=== PATIENT | female | born 1960 | race Caucasian/White ===

== ENCOUNTER 2016-08-14 12:43 | Emergency (ER) | payer OTHER ==
[2016-08-14] MEDS ORDERED: AMOXICILLIN TR/POT CLAVULANATE 500-125 MG TAB PO ONE (14:34)
[2016-08-14] MEDS ORDERED: OXYCODONE-ACETAMINOPHEN 5-325 MG TABLET PO ONE (14:34)
[2016-08-14] MEDS ORDERED: PREDNISONE 20 MG TABLET PO ONE (14:34)
--- NOTE | 2016-08-14 14:49 | ER Document Report ---
ED Animal Bite - General Chief Complaint: Cat Bite Stated Complaint: CAT ATTACK Time Seen by Provider: 08/14/16 13:52 Mode of Arrival: Ambulatory Information source: Patient Notes: Patient is a 56-year-old female who presents to the ER today for swollen, red, painful left hand after her cat bit her 3 days ago. Patient states she has not been keeping it clean, states that the pain and swelling him to gotten worse and worse and she has been using heat packs which have not been helping. She admits to chills but no fever. She states that her cat was up-to-date on all of her shots including rabies. She is not up-to-date on her tetanus. TRAVEL OUTSIDE OF THE [place] IN LAST 30 DAYS: No - Related Data Allergies/Adverse Reactions: No Known Allergies Allergy (Unverified 08/14/16 13:03) Past Medical History - General Information source: Patient - Social History Smoking Status: Unknown if Ever Smoked Family History: Reviewed & Not Pertinent Patient has suicidal ideation: No Patient has homicidal ideation: No Renal/ Medical History: Denies: Hx Peritoneal Dialysis Review of Systems - Review of Systems Constitutional: No symptoms reported EENT: No symptoms reported Cardiovascular: No symptoms reported Respiratory: No symptoms reported Gastrointestinal: No symptoms reported Genitourinary: No symptoms reported Female Genitourinary: No symptoms reported Musculoskeletal: No symptoms reported Skin: No symptoms reported Hematologic/Lymphatic: No symptoms reported Neurological/Psychological: No symptoms reported Physical Exam - Vital signs Vitals: Temp Pulse Resp BP Pulse Ox 98.3 F 121 H 24 H 146/93 H 97 08/14/16 13:03 08/14/16 13:03 08/14/16 13:03 08/14/16 13:03 08/14/16 13:03 - Notes Notes: PHYSICAL EXAMINATION: GENERAL: Obviously in pain, in no acute distress. HEAD: Atraumatic, normocephalic. EYES: Pupils equal round and reactive to light, extraocular movements intact, sclera anicteric, conjunctiva are normal. NECK: Normal range of motion, supple without lymphadenopathy LUNGS: CTAB and equal. No wheezes rales or rhonchi. HEART: Regular rate and rhythm without murmurs EXTREMITIES: Normal range of motion, no pitting edema. No cyanosis. NEUROLOGICAL: Cranial nerves grossly intact. Normal sensory/motor exams. PSYCH: Normal mood, normal affect. SKIN: Warm, Dry, normal turgor, edematous, erythematous left hand with cat bite markings on dorsal left hand, tender to palpation, warm to touch, no drainage or bleeding Course - Re-evaluation Re-evalutation: 08/14/16 16:41 Patient heart rate was 121 bpm on arrival, after pain medication was given, patient wanted to leave 15 minutes later, heart rate 132 bpm. I advised patient stay so that I can do further evaluation and get her heart rate down with some IV fluids, etc., however patient has a ride and "feels much better" and would like to go home. I have advised her that she will have to sign out AGAINST MEDICAL ADVICE and she agrees at this time. She states that she does have palpitations sometimes. - Vital Signs Vital signs: Temp Pulse Resp BP Pulse Ox 98.2 F 128 H 16 132/84 H 96 08/14/16 15:43 08/14/16 15:43 08/14/16 15:43 08/14/16 15:43 08/14/16 15:43 Discharge - Discharge Clinical Impression: Tachycardia Cat bite Qualifiers: Encounter type: initial encounter Qualified Code(s): W55.01XA - Bitten by cat, initial encounter Disposition: AGAINST MEDICAL ADVICE Additional Instructions: Return immediately for any new or worsening symptoms. Follow up with primary care provider, call tomorrow to make followup appointment. Prescriptions: Amox Tr/Potassium Clavulanate [Augmentin 875-125 Tablet] 1 tab PO BID 10 Days Oxycodone HCl/Acetaminophen [Percocet 5-325 mg Tablet] 1 tab PO Q4 #15 tab Prednisone [Deltasone 20 mg Tablet] 3 tab PO DAILY 5 Days
[2016-08-14 15:44] VITALS: BP 132/84
[2016-08-14] MEDS ORDERED: DIPH/PERTUSS(ACELL)/TETANUS VAC/PF 0.5 ML SYR (>=10YO) IM ONE (16:39)
== END 2016-08-14 17:00 | disposition left against medical advice (07) ==
LOC: ER 12:43
DX: S61.452A Open bite of left hand, initial encounter (principal); W55.01XA Bitten by cat, initial encounter; Y93.84 Activity, sleeping; R00.0 Tachycardia, unspecified; R00.2 Palpitations; Z53.20 Procedure and treatment not carried out because of patient's decision for unspecified reasons
CPT/HCPCS: 99283; J7512

== ENCOUNTER 2016-11-21 17:17 | Emergency (ER) | payer SELFPAY ==
[2016-11-21] MEDS ORDERED: NORMAL SALINE 1000 ML 1,000 ML IV PRN (18:11)
[2016-11-21] MEDS ORDERED: ONDANSETRON 4 MG TAB.RAPDIS PO ONE (18:13)
[2016-11-21] MEDS ORDERED: THIAMINE HCL 100 MG TABLET PO ONE (18:13)
--- NOTE | 2016-11-21 18:14 | ER Document Report ---
ED Medical Screen (RME) - General Chief Complaint: Blurred Vision Stated Complaint: BLURRED VISION,WEAKNESS Time Seen by Provider: 11/21/16 18:11 Mode of Arrival: Ambulatory Information source: Patient Notes: This is a 56-year-old female with a history of daily alcohol use who presents to the emergency room with diplopia for 4 days. Patient does note decreased p.o. intake, intermittent nausea and vomiting. She does report increased weakness. She denies headache, focal weakness, confusion, fever, chills. TRAVEL OUTSIDE OF THE [place] IN LAST 30 DAYS: No - Related Data Allergies/Adverse Reactions: No Known Allergies Allergy (Verified 11/21/16 17:29) Past Medical History - Social History Chew tobacco use (# tins/day): No Frequency of alcohol use: Heavy Drug Abuse: None Pulmonary Medical History: Reports: Hx Asthma Renal/ Medical History: Denies: Hx Peritoneal Dialysis Past Surgical History: Reports: Hx Section - Immunizations Hx Diphtheria, Pertussis, Tetanus Vaccination: No Physical Exam - Vital signs Vitals: Temp Pulse Resp BP Pulse Ox 97.6 F 115 H 16 154/93 H 99 11/21/16 17:28 11/21/16 17:28 11/21/16 17:28 11/21/16 17:28 11/21/16 17:28 Course - Vital Signs Vital signs: Temp Pulse Resp BP Pulse Ox 97.6 F 115 H 16 154/93 H 99 11/21/16 17:28 11/21/16 17:28 11/21/16 17:28 11/21/16 17:28 11/21/16 17:28
[2016-11-21] MEDS ORDERED: THIAMINE HCL 100 MG in NORMAL SALINE 50 ML IV SCH (18:15)
[2016-11-21 18:54] LABS: ABSOLUTE LYMPHOCYTES (AUTO) 1.2 10^3/uL (0.5-4.7); ABSOLUTE MONOCYTES (AUTO) 0.5 10^3/uL (0.1-1.4); ABSOLUTE NEUT (AUTO) 3.4 10^3/uL (1.7-8.2); BASOPHILS % (AUTO) 0.9 % (0-2); EOSINOPHILS % (AUTO) 0.4 % (0-6); HEMATOCRIT 35.5 % (36.0-47.0); HEMOGLOBIN 12.7 g/dL (12.0-15.5); HGB HCT DIFFERENCE 2.6; LYMPHOCYTES % (AUTO) 22.7 % (13-45); MEAN CORPUSCULAR HGB CONC 35.8 g/dL (32.0-36.0); MEAN CORPUSCULAR VOLUME 101 fl (80-97); MONOCYTES % (AUTO) 9.5 % (3-13); RED BLOOD COUNT 3.52 10^6/uL (3.72-5.28); RED CELL DISTRIBUTION WIDTH 14.5 % (11.5-14.0); SEGMENTED NEUTROPHILS % (AUTO) 66.5 % (42-78); WHITE BLOOD COUNT 5.1 10^3/uL (4.0-10.5)
--- NOTE | 2016-11-21 19:15 | ER Document Report ---
ED General - General Chief Complaint: Blurred Vision Stated Complaint: BLURRED VISION,WEAKNESS Time Seen by Provider: 11/21/16 18:11 Mode of Arrival: Ambulatory Information source: Patient Notes: 56 yo non smoking female with non tx htn, non dm, c/o double vision intermittent (amparolion avelino) sudden onset 4 days ago (used to wear contacts) , starting to become more constant in past few days. Took nap that day, and was gone but is now recurring. Also states that she has numbness to stomach skin, sometimes in both legs that started before the double vison. TRAVEL OUTSIDE OF THE [place] IN LAST 30 DAYS: No - Related Data Allergies/Adverse Reactions: No Known Allergies Allergy (Verified 11/21/16 17:29) Past Medical History - General Information source: Patient - Social History Smoking Status: Never Smoker Chew tobacco use (# tins/day): No Frequency of alcohol use: Heavy - wine sip all day and night, withdrawal if she does not, she is expecting to have withdrawal /shakes heart palpitations. Last intake wine was 5 pm. Drug Abuse: None Occupation: [employer] Lives with: Alone Family History: Reviewed & Not Pertinent - Past Medical History Cardiac Medical History: Reports: Hx Hypertension Pulmonary Medical History: Reports: Hx Asthma Neurological Medical History: Reports: Hx Migraine. Denies: Hx Cerebrovascular Accident, Hx Seizures Renal/ Medical History: Denies: Hx Peritoneal Dialysis GI Medical History: Denies: Hx Liver Failure Past Surgical History: Reports: Hx Section - x 3 - Immunizations Hx Diphtheria, Pertussis, Tetanus Vaccination: No Review of Systems - Review of Systems Constitutional: No symptoms reported EENT: See HPI Cardiovascular: No symptoms reported Respiratory: No symptoms reported Gastrointestinal: No symptoms reported Genitourinary: No symptoms reported Female Genitourinary: No symptoms reported Musculoskeletal: No symptoms reported Skin: No symptoms reported Hematologic/Lymphatic: No symptoms reported Neurological/Psychological: See HPI Physical Exam - Vital signs Vitals: Temp Pulse Resp BP Pulse Ox 97.6 F 115 H 16 154/93 H 99 11/21/16 17:28 11/21/16 17:28 11/21/16 17:28 11/21/16 17:28 11/21/16 17:28 Interpretation: Hypertensive, Tachycardic - General General appearance: Appears well, Alert In distress: None - HEENT Head: Normocephalic, Atraumatic Eyes: Normal Conjunctiva: Normal Extraocular movements intact: No - nystagmus, limited left lateral and superior Pupils: PERRL Nerve palsy: Yes - limited with nystagmus as above Tympanic membrane: Normal Pharynx: Normal Neck: Supple. No: Lymphadenopathy - Respiratory Respiratory status: No respiratory distress Chest status: Nontender Breath sounds: Normal Chest palpation: Normal - Cardiovascular Rhythm: Regular Heart sounds: Normal auscultation Murmur: No - Abdominal Inspection: Normal Distension: No distension Bowel sounds: Normal Tenderness: Nontender. No: Tender Organomegaly: No organomegaly - Back Back: Normal, Nontender - Extremities General upper extremity: Normal inspection, Nontender, Normal color, Normal ROM , Normal temperature General lower extremity: Normal inspection, Nontender, Normal color, Normal ROM , Normal temperature, Normal weight bearing. No: Prosper's sign - Neurological Neuro grossly intact: Yes Cognition: Normal Orientation: AAOx4 Aarti Coma Scale Eye Opening: Spontaneous [place] Coma Scale Verbal: Oriented [place] Coma Scale Motor: Obeys Commands Aarti Coma Scale Total: 15 Speech: Normal Cranial nerves: Other - see above for EOM's Motor strength normal: LUE, RUE, LLE, RLE Sensory: Normal - Psychological Associated symptoms: Normal affect, Normal mood - Skin Skin Temperature: Warm Skin Moisture: Dry Skin Color: Normal Skin irregularity: negative: Rash Course - Re-evaluation Re-evalutation: 11/21/16 20:[address] streeter, get MRI combo, probably wernicke encephalopathy, give vit b12 daily, f/u with him, patch [address] is negative. 11/21/16 20:40 pt does not want the MRI I explained the other differentials this could be and still is very concerned about the cost and she thinks it is due to the alcohol because when she sleeps she wakes up without it. I will have her sign the refusal of treatment/AMA form and refer her to dr. rangel with the other recommended treatmenst. She is willing to accept the risks of not have definitive diagnosis. 11/21/16 20:42 11/21/16 20:43 etoh 50, liver enzymes elevated. - Vital Signs Vital signs: Temp Pulse Resp BP Pulse Ox 98.3 F 102 H 18 162/91 H 98 11/21/16 22:02 11/21/16 22:02 11/21/16 22:02 11/21/16 22:02 11/21/16 22:02 - Laboratory Result Diagrams: 11/21/16 18:40 11/21/16 19:45 Laboratory results interpreted by me: 11/21/16 11/21/16 11/21/16 18:40 18:40 19:45 RBC 3.52 L Hct 35.5 L MCV 101 H MCH 36.0 H RDW 14.5 H Sodium 136.5 L Chloride 97 L Carbon Dioxide 18 L Anion Gap 22 H Total Bilirubin 2.3 H Direct Bilirubin 1.7 H AST 335 H ALT 94 H Alkaline Phosphatase 238 H Urine Ketones 20 H Urine Blood SMALL H Urine Urobilinogen 4.0 H Ur Leukocyte Esterase MODERATE H Discharge - Discharge Clinical Impression: Alcoholism, intermittent diplopia, Liver enzyme elevation Condition: Good Disposition: HOME, SELF-CARE Instructions: Chronic Alcoholism ([facility]), Gastroenterology, Liver Function Abnormality ([facility]) Additional Instructions: seek detox to get off alcohol no tylenol because your liver enzymes are elevated see the neurologist dr. streeter info given to you to er if worse patch 1 eye when you see double over the counter vitamin B12 daily Please complete the patient satisfaction survey if you get one, and return it.. If you do not receive a survey, then you can go to the [facility] website, [email or web address] and place your comments about your very good care. Thank you very much. It was a pleasure being your medical provider today. Forms: Return to Work Referrals: JOSELINE RANGEL MD [ACTIVE STAFF] - Follow up as needed BORIS MEMBRENO MD [ACTIVE STAFF] - Follow up as needed
[2016-11-21 19:18] LABS: APPEARANCE,URINE SLIGHTLY-CLOUDY; BILIRUBIN,URINE NEGATIVE (NEGATIVE); GLUCOSE, URINE NEGATIVE (NEGATIVE); KETONES,URINE 20 mg/dL (NEGATIVE); LEUKOCYTE ESTERASE,URINE MODERATE (NEGATIVE); NITRITE,URINE NEGATIVE (NEGATIVE); PROTEIN,URINE NEGATIVE (NEGATIVE); URINE SPECIFIC GRAVITY 1.012
--- NOTE | 2016-11-21 19:44 | RADIOLOGY REPORT (SQ) ---
EXAM DESCRIPTION: CT HEAD WITHOUT COMPLETED DATE/TIME: 11/21/2016 7:01 pm REASON FOR STUDY: diploplia COMPARISON: None. TECHNIQUE: Axial images acquired through the brain without intravenous contrast. Images reviewed wi th bone, brain and subdural windows. Images stored on PACS. All CT scanners at this facility use dose modulation, iterative reconstruction, and/or weight based d osing when appropriate to reduce radiation dose to as low as reasonably achievable (ALARA). [facility]: Dose Right [facility]: CareDose [facility]: Dose Right [facility]: Teradose 4D [facility]: [place] RADIATION DOSE: Up-to-date CT equipment and radiation dose reduction techniques were employed. CTDIv ol: 64.6 mGy. DLP: 1163 mGy-cm. mGy. LIMITATIONS: None. FINDINGS: VENTRICLES: Normal size and contour. CEREBRUM: No masses. No hemorrhage. No midline shift. No evidence for acute infarction. Normal gra y/white matter differentiation. No areas of low density in the white matter. CEREBELLUM: No masses. No hemorrhage. No alteration of density. No evidence for acute infarction. EXTRAAXIAL SPACES: No fluid collections. No masses. There is some prominence of the sulci over the convexities. ORBITS AND GLOBE: No intra- or extraconal masses. Normal contour of globe without masses. CALVARIUM: No fracture. PARANASAL SINUSES: Mucosal thickening is identified in the maxillary antra. SOFT TISSUES: No mass or hematoma. OTHER: No other significant finding. IMPRESSION: No significant intracranial abnormalities were identified. Findings as noted above EVIDENCE OF ACUTE STROKE: NO. COMMENT: Quality ID # [id number]: Final reports with documentation of one or more dose reduction techniques (e.g., Automated exposure control, adjustment of the mA and/or kV according to patient size, use of iterative reconstruction technique) TECHNICAL DOCUMENTATION: JOB ID: [id number] [employer]- All Rights Reserved
[2016-11-21] MEDS ORDERED: LORAZEPAM 1 MG TABLET PO ONE (20:15)
[2016-11-21 20:22] LABS: ALANINE AMINOTRANSFERASE 94 U/L (9-52); ALBUMIN 4.3 g/dL (3.5-5.0); ALKALINE PHOSPHATASE 238 U/L (38-126); ASPARTATE AMINO TRANSFERASE 335 U/L (14-36); BILIRUBIN,DIRECT 1.7 mg/dL (0.0-0.4); BILIRUBIN,TOTAL 2.3 mg/dL (0.2-1.3); BLOOD UREA NITROGEN 10 mg/dL (7-20); CALCIUM 9.8 mg/dL (8.4-10.2); CREATININE RESULT 0.53 mg/dL (0.52-1.25); GLUCOSE 107 mg/dL (75-110); MAGNESIUM 1.7 mg/dL (1.6-2.3); TOTAL PROTEIN 7.4 g/dL (6.3-8.2)
[2016-11-21 20:29] LABS: CARBON DIOXIDE 18 mmol/L (22-30); CHLORIDE 97 mmol/L (98-107); SODIUM 136.5 mmol/L (137-145)
[2016-11-21 20:40] LABS: ANION GAP 22 (5-19)
[2016-11-21] MEDS ORDERED: THIAMINE HCL 100 MG in NORMAL SALINE 50 ML IV ONE (21:00)
[2016-11-21 22:05] VITALS: BP 162/91
== END 2016-11-21 22:24 | disposition home or self-care (01) ==
LOC: ER 17:17
DX: H53.8 Other visual disturbances (principal); F10.20 Alcohol dependence, uncomplicated; H53.2 Diplopia; R74.8 Abnormal levels of other serum enzymes; I10 Essential (primary) hypertension
CPT/HCPCS: 99284; 96365; 36415; 80307; 83735; 85025; 80053; 81001; 70450; S0119; J3411; J7030

== ENCOUNTER 2019-11-06 11:59 | Emergency (ER) | payer SELFPAY ==
[2019-11-06 12:44] LABS: ABSOLUTE BASOPHILS # (AUTO) 0.1 10^3/uL (0.0-0.2); ABSOLUTE EOSINOPHILS # (AUTO) 0.2 10^3/uL (0.0-0.6); ABSOLUTE LYMPHOCYTES (AUTO) 2.7 10^3/uL (0.5-4.7); ABSOLUTE MONOCYTES (AUTO) 0.2 10^3/uL (0.1-1.4); ABSOLUTE NEUT (AUTO) 3.7 10^3/uL (1.7-8.2); BASOPHILS % (AUTO) 0.9 % (0-2); HEMATOCRIT 35.9 % (36.0-47.0); LYMPHOCYTES % (AUTO) 39.2 % (13-45); MEAN CORPUSCULAR HEMOGLOBIN 30.6 pg (27.0-33.4); MEAN CORPUSCULAR HGB CONC 36.3 g/dL (32.0-36.0); MEAN CORPUSCULAR VOLUME 84 fl (80-97); MONOCYTES % (AUTO) 2.4 % (3-13); PLATELET COUNT 128 10^3/uL (150-450); RED BLOOD COUNT 4.26 10^6/uL (3.72-5.28); RED CELL DISTRIBUTION WIDTH 14.4 % (11.5-14.0); SEGMENTED NEUTROPHILS % (AUTO) 54.5 % (42-78); TOTAL CELLS COUNTED % (AUTO) 100 %; WHITE BLOOD COUNT 6.9 10^3/uL (4.0-10.5)
[2019-11-06 12:54] LABS: ALCOHOL 266 mg/dL (NONE DETECTED); ALKALINE PHOSPHATASE 119 U/L (38-126); ANION GAP 18 (5-19); ASPARTATE AMINO TRANSFERASE 60 U/L (14-36); BILIRUBIN,DIRECT 0.5 mg/dL (0.0-0.4); BILIRUBIN,TOTAL 1.3 mg/dL (0.2-1.3); BLOOD UREA NITROGEN 10 mg/dL (7-20); CALCIUM 8.4 mg/dL (8.4-10.2); CARBON DIOXIDE 20 mmol/L (22-30); CHLORIDE 104 mmol/L (98-107); GLUCOSE 79 mg/dL (75-110); POTASSIUM 4.8 mmol/L (3.6-5.0); TOTAL PROTEIN 7.1 g/dL (6.3-8.2)
--- NOTE | 2019-11-06 13:08 | ER Document Report ---
ED General - General Chief Complaint: ETOH Abuse Stated Complaint: ALCOHOL WITHDRAWAL Time Seen by Provider: 11/06/19 13:07 TRAVEL OUTSIDE OF THE [place] IN LAST 30 DAYS: No - HPI Notes: 59-year-old female presents with alcohol intoxication. Patient states that she was sober since July 22, 2018. In the past week she has started drinking. She states she "just felt like it", she denies any sort of life stressors or reasons to begin drinking and. She states she has been drinking heavily for the past week or so. She states that she is "not functioning" and "would like to get my life back", referencing Librium and to discontinue alcohol use. She states that she has been lying to her coworkers, she states that she told them that she fell, she now denies this. She does not remember any sort of events that happened today to lead to EMS being called. Per nursing report, EMS was called for a welfare check from a neighbor. She denies any sorts of pain. She states that she has a possible history of cirrhosis, has not really sought medical care for several years. She has not been eating much secondary to alcohol use. - Related Data Allergies/Adverse Reactions: No Known Allergies Allergy (Verified 11/06/19 12:31) Past Medical History - General Information source: Patient - Social History Smoking Status: Never Smoker Frequency of alcohol use: Heavy Family History: Reviewed & Not Pertinent - Past Medical History Cardiac Medical History: Reports: Hx Hypertension Pulmonary Medical History: Reports: Hx Asthma Neurological Medical History: Reports: Hx Migraine. Denies: Hx Cerebrovascular Accident, Hx Seizures Renal/ Medical History: Denies: Hx Peritoneal Dialysis GI Medical History: Denies: Hx Liver Failure Past Surgical History: Reports: Hx Section - x 3 - Immunizations Hx Diphtheria, Pertussis, Tetanus Vaccination: No Review of Systems - Review of Systems Constitutional: denies: Fever EENT: No symptoms reported Cardiovascular: denies: Chest pain Respiratory: denies: Short of breath Gastrointestinal: denies: Abdominal pain Genitourinary: No symptoms reported Musculoskeletal: denies: Joint pain Skin: No symptoms reported Neurological/Psychological: denies: Homicidal ideation, Headaches, Suicidal ideation Physical Exam - Vital signs Vitals: Temp Resp BP Pulse Ox 98.2 F 20 145/97 H 95 11/06/19 12:21 11/06/19 12:21 11/06/19 12:21 11/06/19 12:21 - General General appearance: Appears well, Alert, Anxious In distress: None - HEENT Head: Normocephalic, Atraumatic Eyes: No: Scleral icterus Extraocular movements intact: Yes Pupils: PERRL Mucous membranes: Moist Neck: Normal - Respiratory Chest status: Nontender Breath sounds: Normal - Cardiovascular Rhythm: Regular, Tachycardia Heart sounds: Normal auscultation Normal capillary refill: Yes Notes: Will become tachycardic to 140s when upset, when calms down heart rate decreases to the 110s - Abdominal Distension: No distension Tenderness: Nontender - Extremities General upper extremity: Normal inspection, Normal ROM General lower extremity: Normal inspection, Normal ROM. No: Edema - Neurological Neuro grossly intact: Yes Cognition: Normal Orientation: AAOx4 Motor strength normal: LUE, RUE, LLE, RLE - Psychological Associated symptoms: Other - Anxious appearing, will call him down, intoxicated - Skin Skin Temperature: Warm Skin Color: negative: Jaundiced Course - Re-evaluation Re-evalutation: 59-year-old female brought in by EMS for alcohol intoxication, apparently a welfare check was called her today. Patient currently denying complaints. She references wanting help to quit drinking, will have psychiatry services come assess. She denies SI or HI. She seems to have insight that her binge drinking is a problem. She is overall nontoxic appearing on exam, she will become tachycardic but rate decreases when she calms down. I do not see any evidence of head trauma, neck is nontender, chest is nontender, breath sounds are clear, abdomen is nondistended and nontender, she is grossly neurologically intact. Will obtain CT head given that she had said she fallen but then denied it. Labs been ordered through triage process. Will give liter of LR as I presume there is some degree of dehydration going on. 11/06/19 15:49 Patient has been seen by behavioral health, she does not want detox at this time, she is adamant about going home. She was provided resources. Patient apparently had refused CT with nursing. I went to discuss and patient is now agreeable for head CT. We will give a dose of Valium as she is reporting some anxiousness. Plan to discharge her with Librium prescription. 11/06/19 16:53 CT head is negative for bleed. Prescription for Librium taper prescribed. Return precautions given, stable at time of discharge. - Vital Signs Vital signs: Temp Pulse Resp BP Pulse Ox 98.2 F 21 H 165/79 H 93 11/06/19 12:27 11/06/19 16:02 11/06/19 16:02 11/06/19 13:00 - Laboratory Result Diagrams: 11/06/19 12:17 11/06/19 12:17 Laboratory results interpreted by me: 11/06/19 11/06/19 11/06/19 12:17 12:17 14:39 Hct 35.9 L MCHC 36.3 H RDW 14.4 H Plt Count 128 L [place] % (Auto) 2.4 L Carbon Dioxide 20 L Direct Bilirubin 0.5 H AST 60 H Urine Ketones 20 H Discharge - Discharge Clinical Impression: Alcohol abuse Condition: Stable Disposition: HOME, SELF-CARE Additional Instructions: Please follow-up with detox is provided. You have been prescribed Librium to help with your alcohol withdrawal. Start with 25 mg 4 times a day. When your withdrawal symptoms are better, you need to taper off, 3 times a day, then 2 times a day, then once a day, etc. History of the emergency department for any concerning worsening symptoms Prescriptions: Chlordiazepoxide HCl 25 mg PO QID #30 capsule
[2019-11-06] MEDS ORDERED: RINGERS SOLUTION,LACTATED 1,000 ML IV ONE (13:29)
[2019-11-06 15:13] LABS: APPEARANCE,URINE CLEAR; BILIRUBIN,URINE NEGATIVE (NEGATIVE); COLOR,URINE YELLOW; GLUCOSE, URINE NEGATIVE (NEGATIVE); KETONES,URINE 20 mg/dL (NEGATIVE); LEUKOCYTE ESTERASE,URINE NEGATIVE (NEGATIVE); NITRITE,URINE NEGATIVE (NEGATIVE); PROTEIN,URINE NEGATIVE (NEGATIVE); URINE SPECIFIC GRAVITY 1.009; UROBILINOGEN,URINE NEGATIVE mg/dL (<2.0)
[2019-11-06] MEDS ORDERED: DIAZEPAM 5 MG TABLET PO ONE (15:48)
--- NOTE | 2019-11-06 16:22 | RADIOLOGY REPORT (SQ) ---
EXAM DESCRIPTION: CT HEAD WITHOUT IMAGES COMPLETED DATE/TIME: 11/06/2019 4:14 pm REASON FOR STUDY: EtOH, ?fall, eval bleed COMPARISON: 11/21/2016 TECHNIQUE: Axial images acquired through the brain without intravenous contrast. Images reviewed wi th bone, brain and subdural windows. Additional sagittal and coronal reconstructions were generated. Images stored on PACS. All CT scanners at this facility use dose modulation, iterative reconstruction, and/or weight based d osing when appropriate to reduce radiation dose to as low as reasonably achievable (ALARA). [facility]: Dose Right [facility]: CareDose [facility]: Dose Right [facility]: Teradose 4D [facility]: [place] RADIATION DOSE: CT Rad equipment meets quality standard of care and radiation dose reduction techniq ues were employed. CTDIvol: 53.2 mGy. DLP: 964 mGy-cm. mGy. LIMITATIONS: None. FINDINGS: VENTRICLES: Normal size and contour. CEREBRUM: No masses. No hemorrhage. No midline shift. No evidence for acute infarction. Normal gra y/white matter differentiation. No areas of low density in the white matter. CEREBELLUM: No masses. No hemorrhage. No alteration of density. No evidence for acute infarction. EXTRAAXIAL SPACES: No fluid collections. No masses. ORBITS AND GLOBE: No intra- or extraconal masses. Normal contour of globe without masses. CALVARIUM: No fracture. PARANASAL SINUSES: There is bilateral maxillary sinusitis. Mild bilateral ethmoid air cell disease. SOFT TISSUES: No mass or hematoma. OTHER: No other significant finding. IMPRESSION: 1. No acute intracranial event. 2. Bilateral maxillary and mild ethmoid sinusitis. EVIDENCE OF ACUTE STROKE: NO. COMMENT: Quality ID # 436: Final reports with documentation of one or more dose reduction techniques (e.g., Automated exposure control, adjustment of the mA and/or kV according to patient size, use of iterative reconstruction technique) TECHNICAL DOCUMENTATION: JOB ID: [id number] 2010 [employer]- All Rights Reserved Reading location - IP/workstation name: [email or web address]
[2019-11-06 17:02] VITALS: BP 155/83
--- NOTE | 2019-11-06 19:05 | EKG REPORT ---
SEVERITY:- BORDERLINE ECG - SINUS TACHYCARDIA VENTRICULAR PREMATURE COMPLEX LOW VOLTAGE IN FRONTAL LEADS : Confirmed by: Kristy Jordan 06-Nov-2019 19:05:08
--- NOTE | 2019-11-08 11:06 | PSYCHOLOGICAL NOTE ---
Psych Note - Psych Note Date seen by psych provider: 11/06/19 Time seen by psych provider: 15:24 - Evaluation with patient from [id number]. Psych Note: Patient is a 59 year old female who presented to the Emergency Department this afternoon via EMS after a neighbor called for a health and welfare check, patient had been binge drinking for the past week after a year of sobriety, and patient having concerns for her heart. Serum Alcohol Level was 266 upon arrival to the Emergency Department. Patient stated "I don't need assistance from behavioral health, I need to get out of here and go home." She further noted her main concern at this time is "my heart going like crazy, I want to calm down, I want to feel better." She stated "all I want is medical help otherwise I just want to go home." Patient denied suicidal and homicidal ideation. She declined linkage to detoxification and commented "detox never worked, I can do it on my own, I just need to get past this part, I am feeling awful." Psychoeducated patient on need for medical detoxification for alcohol withdrawal but she was adamant it never worked for her before. She denied there being a trigger to relapse. Patient was alert and oriented to self, person, place, time and situation. Mood was euthymic with congruent affect. She denied current suicidal and homicidal ideation and concerns were medical. Patient did not appear to be responding to internal stimuli as evidenced by fair eye contact and answering questions appropriately when addressed. Thought processes were linear and organized. Conversational speech was within normal limits for rate, tone and prosody. Intellectual abilities are estimated to be average. Insight, judgment and impulse control were fair as evidenced by wanting to ensure her physical health was okay. Clinical Presentation: Alcohol Intoxication with Use Disorder Moderate to Severe 1 year sobriety with relapse a week ago and been binge drinking Impression/Plan: Patient is cleared from acute psychiatric services. She denied suicidal and homicidal ideation. She did not appear to be responding to internal stimuli given fair eye contact, answering questions appropriately when addressed and carrying on dialogue conversation. She expressed concern related to medical, specifically her heart. She denied linkage to voluntary detoxification even with psychoeducation about need for medical detoxification for alcohol withdrawal. Provided patient with the outpatient substance abuse resource sheet which highlighted both local mobile crisis numbers for assistance with voluntary detoxification placement/treatment and listed the detoxification facilities with emphasis on [facility] locally. Consulted with Dr. Raymond regarding the management and care of patient. ED Physician in agreement with recommendations.
== END 2019-11-06 17:02 | disposition home or self-care (01) ==
LOC: ER 11:59
DX: F10.10 Alcohol abuse, uncomplicated (principal); Y90.8 Blood alcohol level of 240 mg/100 ml or more; R41.3 Other amnesia; W19.XXXA Unspecified fall, initial encounter; I10 Essential (primary) hypertension
CPT/HCPCS: 93005; 99285; 96360; 36415; 80307; 85025; 80053; 81001; 70450; 93010; J7120

== ENCOUNTER 2019-11-16 15:11 | Emergency (ER) | payer SELFPAY ==
--- NOTE | 2019-11-16 15:31 | ER Document Report ---
ED Medical Screen (RME) - General Chief Complaint: Medical Clearance Stated Complaint: MEDICAL CLEARANCE/[facility] Time Seen by Provider: 11/16/19 15:26 Notes: HPI: 59-year-old alcoholic female history of cirrhosis presenting for detox for clearance for [facility] accompanied by yield clerk Neris. States that she had been clean from alcohol until approximately a month ago then began drinking again, has 17 to 20 glasses of wine daily. Last glass of wine was approximately an hour ago. Patient wants to go to [facility] for detox for alcohol denies drug use PHYSICAL EXAMINATION: Patient is answering questions appropriately. Lung sounds are clear to auscultation mildly tachycardic no abdominal pain on palpation limited by triage positioning I have greeted and performed a rapid initial assessment of this patient. A comprehensive ED assessment and evaluation of the patient, analysis of test results and completion of medical decision making process will be conducted by an additional ED providers. TRAVEL OUTSIDE OF THE [place] IN LAST 30 DAYS: No - Related Data Allergies/Adverse Reactions: No Known Allergies Allergy (Verified 11/16/19 15:24) Past Medical History - Past Medical History Cardiac Medical History: Reports: Hx Hypertension Pulmonary Medical History: Reports: Hx Asthma Neurological Medical History: Reports: Hx Migraine. Denies: Hx Cerebrovascular Accident, Hx Seizures Renal/ Medical History: Denies: Hx Peritoneal Dialysis GI Medical History: Denies: Hx Liver Failure Past Surgical History: Reports: Hx Section - x 3 - Immunizations Hx Diphtheria, Pertussis, Tetanus Vaccination: No Physical Exam - Vital signs Vitals: Temp Pulse Resp BP Pulse Ox 98.2 F 103 H 20 133/67 H 96 11/16/19 15:15 11/16/19 15:15 11/16/19 15:15 11/16/19 15:15 11/16/19 15:15 Course - Vital Signs Vital signs: Temp Pulse Resp BP Pulse Ox 98.2 F 103 H 20 133/67 H 96 11/16/19 15:15 11/16/19 15:15 11/16/19 15:15 11/16/19 15:15 11/16/19 15:15
[2019-11-16 16:22] LABS: APPEARANCE,URINE CLEAR; BILIRUBIN,URINE NEGATIVE (NEGATIVE); COLOR,URINE STRAW; GLUCOSE, URINE NEGATIVE (NEGATIVE); KETONES,URINE NEGATIVE (NEGATIVE); LEUKOCYTE ESTERASE,URINE NEGATIVE (NEGATIVE); NITRITE,URINE NEGATIVE (NEGATIVE); PROTEIN,URINE NEGATIVE (NEGATIVE); URINE SPECIFIC GRAVITY 1.003; UROBILINOGEN,URINE NEGATIVE mg/dL (<2.0)
[2019-11-16 16:29] LABS: ABSOLUTE EOSINOPHILS # (AUTO) 0.2 10^3/uL (0.0-0.6); ABSOLUTE LYMPHOCYTES (AUTO) 1.4 10^3/uL (0.5-4.7); ABSOLUTE MONOCYTES (AUTO) 0.2 10^3/uL (0.1-1.4); BASOPHILS % (AUTO) 0.6 % (0-2); EOSINOPHILS % (AUTO) 6.2 % (0-6); HEMATOCRIT 41.1 % (36.0-47.0); HEMOGLOBIN 13.8 g/dL (12.0-15.5); LYMPHOCYTES % (AUTO) 36.6 % (13-45); MEAN CORPUSCULAR HGB CONC 33.7 g/dL (32.0-36.0); MONOCYTES % (AUTO) 4.9 % (3-13); RED CELL DISTRIBUTION WIDTH 16.8 % (11.5-14.0); SEGMENTED NEUTROPHILS % (AUTO) 51.7 % (42-78); TOTAL CELLS COUNTED % (AUTO) 100 %; WHITE BLOOD COUNT 3.9 10^3/uL (4.0-10.5)
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
[2019-11-16 16:35] LABS: ALBUMIN 4.5 g/dL (3.5-5.0); ALCOHOL 191 mg/dL (NONE DETECTED); ALKALINE PHOSPHATASE 156 U/L (38-126); ANION GAP 13 (5-19); ASPARTATE AMINO TRANSFERASE 85 U/L (14-36); BILIRUBIN,DIRECT 0.4 mg/dL (0.0-0.4); BLOOD UREA NITROGEN 7 mg/dL (7-20); CALCIUM 8.9 mg/dL (8.4-10.2); CARBON DIOXIDE 27 mmol/L (22-30); CHLORIDE 107 mmol/L (98-107); GLUCOSE 104 mg/dL (75-110); POTASSIUM 4.5 mmol/L (3.6-5.0); TOTAL PROTEIN 7.9 g/dL (6.3-8.2)
[2019-11-16 16:36] LABS: ACETAMINOPHEN < 10 ug/mL (10-30); SALICYLATE < 1.0 mg/dL (2.0-20.0)
[2019-11-16 16:38] LABS: URINE AMPHETAMINES SCREEN NEGATIVE; URINE BARBITURATES SCREEN NEGATIVE; URINE COCAINE SCREEN NEGATIVE; URINE MARIJUANA (THC) SCREEN NEGATIVE; URINE METHADONE SCREEN NEGATIVE; URINE PHENCYCLIDINE SCREEN NEGATIVE
[2019-11-16 16:39] LABS: URINE BENZODIAZEPINES SCREEN UNCONFIRMED POSITIVE
[2019-11-16 17:03] LABS: MEAN CORPUSCULAR VOLUME 89 fl (80-97); PLATELET COUNT 93 10^3/uL (150-450)
[2019-11-16 17:16] LABS: FREE T4 (FREE THYROXINE) 0.9 ng/dL (0.78-2.19)
[2019-11-16 17:30] LABS: THYROID STIMULATING HORMONE 1.92 uIU/mL (0.47-4.68)
--- NOTE | 2019-11-16 17:32 | RADIOLOGY REPORT (SQ) ---
EXAM DESCRIPTION: CHEST SINGLE VIEW IMAGES COMPLETED DATE/TIME: 11/16/2019 5:21 pm REASON FOR STUDY: alcohol intoxication COMPARISON: 06/07/2009. EXAM PARAMETERS: NUMBER OF VIEWS: One view. TECHNIQUE: Single frontal radiographic view of the chest acquired. RADIATION DOSE: NA LIMITATIONS: None. FINDINGS: LUNGS AND PLEURA: No opacities, masses or pneumothorax. No pleural effusion. MEDIASTINUM AND HILAR STRUCTURES: No masses. Contour normal. HEART AND VASCULAR STRUCTURES: Heart normal in size. Normal vasculature. BONES: No acute findings. HARDWARE: None in the chest. OTHER: No other significant finding. IMPRESSION: NO ACUTE RADIOGRAPHIC FINDING IN THE CHEST. TECHNICAL DOCUMENTATION: JOB ID: [id number] 2010 [employer]- All Rights Reserved Reading location - IP/workstation name: [email or web address]
--- NOTE | 2019-11-16 17:32 | RADIOLOGY REPORT (SQ) ---
EXAM DESCRIPTION: KUB/ABDOMEN (SINGLE VIEW) IMAGES COMPLETED DATE/TIME: 11/16/2019 5:21 pm REASON FOR STUDY: alcohol intoxication COMPARISON: None. NUMBER OF VIEWS: One view. TECHNIQUE: Supine radiographic image of the abdomen acquired. LIMITATIONS: None. FINDINGS: BOWEL GAS PATTERN: Normal bowel gas pattern. No dilated loops. CALCIFICATIONS: No suspicious calcifications. SOFT TISSUES: No gross mass or suggestion of organomegaly. HARDWARE: None in the abdomen. BONES: No acute fracture. No worrisome bone lesions. OTHER: No other significant finding. IMPRESSION: NO RADIOGRAPHIC EVIDENCE FOR ACUTE ABDOMINAL DISEASE. TECHNICAL DOCUMENTATION: JOB ID: [id number] 2010 [employer]- All Rights Reserved Reading location - IP/workstation name: [email or web address]
[2019-11-16] MEDS ORDERED: LORAZEPAM INJ 2 MG/1 ML VIAL IM ONE (21:28)
--- NOTE | 2019-11-16 21:45 | EKG REPORT ---
SEVERITY:- BORDERLINE ECG - SINUS TACHYCARDIA BORDERLINE R WAVE PROGRESSION, ANTERIOR LEADS : Confirmed by: Jazmin Iyer MD 16-Nov-2019 21:44:52
[2019-11-16 23:36] VITALS: BP 140/71
== END 2019-11-16 23:30 ==
LOC: ER 15:11
DX: F10.120 Alcohol abuse with intoxication, uncomplicated (principal); R00.0 Tachycardia, unspecified; G62.9 Polyneuropathy, unspecified; R11.0 Nausea; R53.1 Weakness; I10 Essential (primary) hypertension; J45.909 Unspecified asthma, uncomplicated; Z87.19 Personal history of other diseases of the digestive system; Z79.899 Other long term (current) drug therapy
CPT/HCPCS: 93005; 99285; 96372; 36415; 84439; 80307 ×4; 82140; 80178; 84443; 85025; 80053; 81001; 71045; 74018; 93010; J2060